=== PATIENT | male | born 1970 | race Caucasian/White ===

== ENCOUNTER 2019-02-26 09:52 | Emergency (ER) | payer BC, OTHER ==
[~2019-02-26] VITALS: Ht 182.8 cm; Wt 113.0 kg
[2019-02-26] MEDS ORDERED: NS IV 1000 ML 1,000 ML IV SCH (10:07)
[2019-02-26] MEDS ORDERED: NS IV 1000 ML 1,000 ML IV ONE (10:07)
--- NOTE | 2019-02-26 10:10 | ED GU-Male ---
General Chief Complaint: - Urinary Stated Complaint: BLURRY VISION; URINARY FREQUENCY Source: patient, spouse Exam Limitations: no limitations History of Present Illness Date Seen by Provider: Feb 26, 2019 Time Seen by Provider: 09:58 Initial Comments Patient presents ER by private conveyance with chief complaint last to 3 weeks of progressively worsening first, urinating frequently 15-16 times a day and feeling dehydrated. He has some nausea but no vomiting. No fevers or chills cough short of breath. Today he started having some blurry vision at work. He does not follow with a primary care doctor and did have some labs done at a screening fair showing that his triglycerides were very high but never followed up on it. No history of diabetes in him or his family. Family history of cancer. Allergies and Home Medications Allergies Coded Allergies: No Known Drug Allergies (Unverified , 02/26/19) Home Medications Insulin Glargine,Hum.rec.anlog 100 Unit/1 Ml Vial, 10 UNIT SQ DAILY Prescribed by: JOVON KENDALL on 02/26/19 1213 Patient Home Medication List Home Medication List Reviewed: Yes Review of Systems Review of Systems Constitutional: No chills, No fever; malaise, weakness EENTM: blurred vision; No ear discharge, No hearing loss, No ear pain, No double vision Respiratory: No cough, No dyspnea on exertion Cardiovascular: No chest pain, No palpitations Gastrointestinal: No abdominal pain, No constipation, No diarrhea; nausea; No vomiting Genitourinary: see HPI; denies burning, denies discharge; frequency Musculoskeletal: No back pain, No joint pain Skin: No pruritus, No rash Psychiatric/Neurological: Denies Headache, Denies Numbness All Other Systemes Reviewed Negative Unless Noted: Yes Past [id number]-Eoniye Hx Patient Social History Alcohol Use: Denies Use Recreational Drug Use: No Smoking Status: Never a Smoker Recent Foreign Travel: No Physical Exam Vital Signs Vital Signs - First Documented 02/26/19 02/26/19 10:00 12:44 Temp 37.0 Pulse 115 Resp 18 B/P (MAP) 147/86 Pulse Ox 96 O2 Delivery Room Air Capillary Refill : Height, Weight, BMI Height: '" Weight: lbs. oz. kg; BMI Method: General Appearance: WD/WN, mild distress HEENT: PERRL/EOMI, pharynx normal Neck: full range of motion, normal inspection Cardiovascular: normal peripheral pulses, regular rate, rhythm, no edema Respiratory: lungs clear, normal breath sounds, no respiratory distress, no accessory muscle use Gastrointestinal: normal bowel sounds, non tender, soft Extremities: normal range of motion, non-tender, normal capillary refill Neurologic/Psychiatric: alert, normal mood/affect, oriented x 3 Skin: normal color, warm/dry Progress/Results/Core Measures Suspected Sepsis SIRS Temperature: Pulse: Respiratory Rate: Laboratory Tests 02/26/19 10:12: White Blood Count 8.7 Blood Pressure / Mean: Laboratory Tests 02/26/19 10:12: Creatinine 0.84, Platelet Count 316, Total Bilirubin 0.6 Results/Orders Lab Results Laboratory Tests Test 02/26/19 09:57 02/26/19 10:07 02/26/19 10:12 02/26/19 11:15 Range/Units Urine Color YELLOW Urine Clarity CLEAR Urine pH 6.0 5-9 Urine Specific [place] 1.010 L 1.016-1.022 Urine Protein NEGATIVE NEGATIVE Urine Glucose (UA) 3+ H NEGATIVE Urine Ketones NEGATIVE NEGATIVE Urine Nitrite NEGATIVE NEGATIVE Urine Bilirubin NEGATIVE NEGATIVE Urine Urobilinogen 0.2 < = 1.0 MG/DL Urine Leukocyte Esterase NEGATIVE NEGATIVE Urine RBC (Auto) NEGATIVE NEGATIVE Urine RBC NONE /HPF Urine WBC NONE /HPF Urine Squamous Epithelial Cells NONE /HPF Urine Crystals NONE /LPF Urine Bacteria NEGATIVE /HPF Urine Casts NONE /LPF Urine Mucus NEGATIVE /LPF Urine Culture Indicated NO Glucometer 445 *H 70-110 MG/DL White Blood Count 8.7 4.3-11.0 10^3/uL Red Blood Count 5.26 4.35-5.85 10^6/uL Hemoglobin 15.9 13.3-17.7 G/DL Hematocrit 44 40-54 % Mean Corpuscular Volume 83 80-99 FL Mean Corpuscular Hemoglobin 30 25-34 PG Mean Corpuscular Hemoglobin Concent 36 32-36 G/DL Red Cell Distribution Width 12.5 10.0-14.5 % Platelet Count 316 130-400 10^3/uL Mean Platelet Volume 9.8 7.4-10.4 FL Neutrophils (%) (Auto) 63 42-75 % Lymphocytes (%) (Auto) 27 12-44 % Monocytes (%) (Auto) 6 0-12 % Eosinophils (%) (Auto) 3 0-10 % Basophils (%) (Auto) 1 0-10 % Neutrophils # (Auto) 5.4 1.8-7.8 X 10^3 Lymphocytes # (Auto) 2.4 1.0-4.0 X 10^3 Monocytes # (Auto) 0.5 0.0-1.0 X 10^3 Eosinophils # (Auto) 0.3 0.0-0.3 10^3/uL Basophils # (Auto) 0.1 0.0-0.1 10^3/uL Sodium Level 131 L 135-145 MMOL/L Potassium Level 4.7 3.6-5.0 MMOL/L Chloride Level 93 L 98-107 MMOL/L Carbon Dioxide Level 23 21-32 MMOL/L Anion Gap 15 H 5-14 MMOL/L Blood Urea Nitrogen 14 7-18 MG/DL Creatinine 0.84 0.60-1.30 MG/DL Estimat Glomerular Filtration Rate > 60 BUN/Creatinine Ratio 17 Glucose Level 457 *H 70-105 MG/DL Calcium Level 9.9 8.5-10.1 MG/DL Corrected Calcium 9.7 8.5-10.1 MG/DL Total Bilirubin 0.6 0.1-1.0 MG/DL Aspartate Amino Transf (AST/SGOT) 49 H 5-34 U/L Alanine Aminotransferase (ALT/SGPT) 68 H 0-55 U/L Alkaline Phosphatase 81 40-136 U/L C-Reactive Protein 0.51 H <0.50 MG/DL Total Protein 7.6 6.4-8.2 GM/DL Albumin 4.2 3.2-4.5 GM/DL Blood Gas Puncture Site LEFT RADIAL Blood Gas Patient Temperature NA Arterial Blood pH 7.40 7.37-7.43 Arterial Blood Partial Pressure CO2 46 H 35-45 MMHG Arterial Blood Partial Pressure O2 56 L 79-93 MMHG Arterial Blood HCO3 29 H 23-27 MMOL/L Arterial Blood Total CO2 29.9 21.0-31.0 MMOL/L Arterial Blood Oxygen Saturation 89 L 94-100 % Arterial Blood Base Excess 3.1 H -2.5-2.5 MMOL/L Juan Antonio Test YES-POS Blood Gas Ventilator Setting NO Blood Gas Inspired Oxygen ROOM AIR Test 02/26/19 11:56 Range/Units Glucometer 331 H 70-110 MG/DL My Orders Orders - ENOCH,JOVON J Cbc With Automated Diff (02/26/19 10:06) Comprehensive Metabolic Panel (02/26/19 10:06) Crp Fs (02/26/19 10:06) Ua Culture If Indicated (02/26/19 10:06) Accucheck Stat ONCE (02/26/19 10:06) Ed Iv/Invasive Line Start (02/26/19 10:07) Ns Iv 1000 Ml (Sodium Chloride 0.9%) (02/26/19 10:07) Ns Iv 1000 Ml (Sodium Chloride 0.9%) (02/26/19 10:07) Insulin (Regular) Human (Humulin R (Per (02/26/19 10:15) Arterial Blood Gas (02/26/19 10:09) Ondansetron Injection (Zofran Injectio (02/26/19 10:15) Accucheck Stat ONCE (02/26/19 11:24) Insulin (Regular) Human (Humulin R (Per (02/26/19 12:00) Insulin Determir (Per Unit) (Levemir (Pe (02/26/19 12:00) Medications Given in ED Current Medications Medications Dose Ordered Sig/Cynthia Route Start Time Stop Time Status Last Admin Dose Admin Insulin Detemir 10 unit ONCE ONCE SQ 02/26/19 12:00 02/26/19 12:01 DC 02/26/19 12:28 10 UNIT Insulin Human Regular 5 unit ONCE ONCE SC 02/26/19 10:15 02/26/19 10:16 DC 02/26/19 10:44 5 UNIT Insulin Human Regular 7 unit ONCE ONCE SC 02/26/19 12:00 02/26/19 12:01 DC 02/26/19 12:27 7 UNIT Ondansetron HCl 4 mg ONCE ONCE IVP 02/26/19 10:15 02/26/19 10:16 DC 02/26/19 10:44 4 MG Sodium Chloride 1,000 ml @ 0 mls/hr Q0M ONCE IV 02/26/19 10:07 02/26/19 10:08 DC 02/26/19 10:43 0 MLS/HR Vital Signs/I&O 02/26/19 02/26/19 10:00 12:44 Temp 37.0 37.0 Pulse 115 98 Resp 18 18 B/P (MAP) 147/86 Pulse Ox 96 96 O2 Delivery Room Air Capillary Refill : Progress Note #1: Time: 11:42 Progress Note Patient is not in DKA. He does have hyperglycemia and dehydration. Urine does not appear to be infected. We have done 20-30 minutes of motivation all teaching about lifestyle changes, diet, insulin use, sugar management and checking blood sugars. We'll have nursing decent hands-on teaching and have him do one sugar himself as well as give himself a dose of insulin after we get the results from the blood sugar. We'll put him on a long-acting Lantus and try to get him to his outpatient appointment with Dr. starr on Monday, 4 days from now. His vitals are fine. He is feeling much better now. His nausea is gone. He still has no pain. He still has about 800 cc of normal saline left. Progress Note #2: Time: 12:00 Progress Note Repeat glucose 331. He dropped out of 100 with 5 units of regular insulin so a plan to give him another 7 units which will have him self administer and then give him 10 units of Levemir and have him follow-up Monday with primary care. His IV fluids are almost done and his symptoms have abated. Progress Note #3: Time: 12:23 Progress Note Lab reports of the blood was too lipemic to obtain AST and ALT so they sent her down to [place] have a random. He can follow up these results with Dr. starr, primary care. Departure Impression Primary Impression: Hyperglycemia due to type 2 diabetes mellitus Qualified Codes: E11.65 - Type 2 diabetes mellitus with hyperglycemia Additional Impressions: Dehydration Hyperlipidemia associated with type 2 diabetes mellitus Disposition: HOME, SELF-CARE Condition: Improved Departure-Patient Inst. Decision time for Depature: 12:00 Referrals: ZAKIYA STARR MD (PCP/Family) Primary Care Physician Patient Instructions: Blood Glucose Monitoring, Diabetes Diet , Type 2 Diabetes, The ABCs of Diabetes, Hyperglycemia, Adult (DC) Add. Discharge Instructions: Continue to drink plenty of fluids. Check your blood sugar first thing in the morning before have anything to eat or drink and record that in a log book to take with you to the doctor's office on Monday. If your blood sugar is less than 70 then do not give the Lantus, long-acting insulin. Otherwise give 10 units of Lantus subcutaneous every day. If your sugar goes over 400 and you are having any symptoms then you need to return to the ER sooner. Avoid carbohydrates such as her 5 sugars, starches like potatoes, pasta and rice. Eat foods high in fiber such as dark green leafy vegetables. Good second choice are foods rich in protein such as legumes, white meat and fats. Check your blood sugar if you begin to have any symptoms such as increased thirst and frequent urination, cool, clammy, sweaty skin, confusion, fatigue etc. If your blood sugar is below 70 then you need to eat something. Preferably something with a little bit of carbohydrates and some protein such as peanut butter and crackers. Start planning out long-term exercise, fitness and weight loss goals. Discuss with your primary care doctor seeing a dietary conditioning coach. All discharge instructions reviewed with patient and/or family. Voiced understanding. Scripts Blood Glucose Strips-Dispmeter (Co.Import Blood Glucose System) 1 Each Kit EACH DAILY PRN for dm2, #100 Use as directed Prov: JOVON KENDALL 02/26/19 Blood-Glucose Meter (Blood Glucose Meter) 1 Each Each EACH DAILY PRN PRN for HYPOGLYCEMIA, #1 0 Refills Fasting and if suspected low blood sugar Prov: JOVON KENDALL 02/26/19 Syring W-Ndl,Disp,Insul,0.3 ml (Insulin Syringe) 1 Each Disp.syrin EACH DAILY for DM2, #100 Prov: JOVON KENDALL 02/26/19 Lancets (Blood Lancets) 1 Each Each EACH DAILY PRN for Discomfort, #100 0 Refills check fasting and as needed. Prov: JOVON KENDALL 02/26/19 Insulin Glargine,Hum.rec.anlog (Lantus) 100 Unit/1 Ml Vial 10 UNIT SQ DAILY for 30 Days, #1 VIAL 0 Refills Prov: JOVON KENDALL 02/26/19 Work/School Note: Work Release Form Date Seen in the Emergency Department: Feb 26, 2019 Return to Work: Feb 28, 2019 Restrictions: No Restrictions Copy Copies To 1: ZAKIYA STARR MD, TITUS J Feb 26, 2019 10:10
[2019-02-26] MEDS ORDERED: ONDANSETRON 4 MG/2 ML (SDV) Z0FRAN IVP ONE (10:15)
[2019-02-26] MEDS ORDERED: inSUlin (REGULAR) HUMAN 1 UNIT/0.01 ML (CHARGE PER UNIT) SC ONE ×2 (10:15→12:00)
[2019-02-26 10:22] LABS: HEMATOCRIT 44 % (40-54); HEMOGLOBIN 15.9 G/DL (13.3-17.7); MEAN CORPUSCULAR HEMOGLOBIN 30 PG (25-34); MEAN CORPUSCULAR HGB CONC 36 G/DL (32-36); MEAN CORPUSCULAR VOLUME 83 FL (80-99); RED CELL DISTRIBUTION WIDTH 12.5 % (10.0-14.5); WHITE BLOOD COUNT 8.7 10^3/uL (4.3-11.0)
[2019-02-26 10:23] LABS: BASOPHILS # (AUTO) 0.1 10^3/uL (0.0-0.1); BASOPHILS % (AUTO) 1 % (0-10); EOSINOPHILS # (AUTO) 0.3 10^3/uL (0.0-0.3); EOSINOPHILS % (AUTO) 3 % (0-10); LYMPHOCYTES # (AUTO) 2.4 X 10^3 (1.0-4.0); LYMPHOCYTES % (AUTO) 27 % (12-44); MEAN PLATELET VOLUME 9.8 FL (7.4-10.4); MONOCYTES # (AUTO) 0.5 X 10^3 (0.0-1.0); MONOCYTES % (AUTO) 6 % (0-12); NEUTROPHILS # (AUTO) 5.4 X 10^3 (1.8-7.8); NEUTROPHILS % (AUTO) 63 % (42-75); PLATELET COUNT 316 10^3/uL (130-400)
[2019-02-26 10:49] LABS: BACTERIA,URINE NEGATIVE /HPF; BILIRUBIN,URINE NEGATIVE (NEGATIVE); CLARITY,URINE CLEAR; COLOR,URINE YELLOW; GLUCOSE, URINE (UA) 3+ (NEGATIVE); KETONES,URINE NEGATIVE (NEGATIVE); LEUKOCYTE ESTERASE ,URINE NEGATIVE (NEGATIVE); NITRITE,URINE NEGATIVE (NEGATIVE); PROTEIN,URINE NEGATIVE (NEGATIVE)
[2019-02-26 10:51] LABS: ALBUMIN 4.2 GM/DL (3.2-4.5); ALKALINE PHOSPHATASE 81 U/L (40-136); BILIRUBIN,TOTAL 0.6 MG/DL (0.1-1.0); BUN/CREATININE RATIO 17; CALCIUM 9.9 MG/DL (8.5-10.1); CARBON DIOXIDE 23 MMOL/L (21-32); CHLORIDE 93 MMOL/L (98-107); CREATININE SERUM 0.84 MG/DL (0.60-1.30); GFR ESTIMATED > 60; POTASSIUM 4.7 MMOL/L (3.6-5.0); SODIUM 131 MMOL/L (135-145); TOTAL PROTEIN 7.6 GM/DL (6.4-8.2)
[2019-02-26 10:56] LABS: GLUCOSE 457 MG/DL (70-105)
[2019-02-26 11:22] LABS: ABG BASE EXCESS 3.1 MMOL/L (-2.5-2.5); ABG PCO2 46 MMHG (35-45); ABG PO2 56 MMHG (79-93); ABG TCO2 29.9 MMOL/L (21.0-31.0)
[2019-02-26 11:23] LABS: ABG OXYGEN SATURATION 89 % (94-100); ALLENS TEST YES-POS; INSPIRED O2 ROOM AIR; VENTILATOR NO
[2019-02-26] MEDS ORDERED: LANC-954 MC (12:13)
[2019-02-26] MEDS ORDERED: [UNRECOGNIZED DRUG - CODE] MC (12:13)
[2019-02-26] MEDS ORDERED: INSU100V6 SQ (12:13)
[2019-02-26] MEDS ORDERED: BLOO1EAC87 MC (12:13)
[2019-02-26 12:44] VITALS: BP 147/86
[2019-02-26] MEDS ORDERED: BLOO-367 MC (13:42)
[2019-02-26 14:57] LABS: ALANINE AMINOTRANSFERASE 68 U/L (0-55)
== END 2019-02-26 12:44 | disposition home or self-care (01) ==
LOC: EDUNIT# 09:52 → ER FS 09:53
DX: E11.65 Type 2 diabetes mellitus with hyperglycemia (principal); E86.0 Dehydration; E11.69 Type 2 diabetes mellitus with other specified complication; E78.49 Other hyperlipidemia
CPT/HCPCS: 36415; 80053; 81000; 82805; 82962; 85025; 86141; 96361; 96372; 96374

== ENCOUNTER 2020-12-04 23:54 | Emergency (ER) | payer BC ==
[~2020-12-04] VITALS: Ht 182.9 cm; Wt 122.5 kg
[~2020-12-04 23:54] MED LIST: BLOO-367 MC; BLOO1EAC87 MC; INSU100V6 SQ; LANC-954 MC; [UNRECOGNIZED DRUG - CODE] MC
--- OUTSIDE RECORDS SUMMARY | 2020-12-05 00:01 | XMS REPORT | Clinical Summary ---
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
[2020-12-05 00:13] LABS: HEMATOCRIT 43 % (40-54); HEMOGLOBIN 14.9 g/dL (13.3-17.7); LYMPHOCYTES % (AUTO) 39 % (12-44); MEAN CORPUSCULAR HEMOGLOBIN 30 pg (25-34); MEAN CORPUSCULAR HGB CONC 35 g/dL (32-36); MEAN CORPUSCULAR VOLUME 85 fL (80-99); MEAN PLATELET VOLUME 9.6 fL (9.0-12.2); MONOCYTES % (AUTO) 6 % (0-12); NEUTROPHILS % (AUTO) 50 % (42-75); PLATELET COUNT 360 10^3/uL (130-400); WHITE BLOOD COUNT 10.9 10^3/uL (4.3-11.0)
[2020-12-05 00:14] LABS: BASOPHILS # (AUTO) 0.1 10^3/uL (0.0-0.1); BASOPHILS % (AUTO) 1 % (0-10); EOSINOPHILS # (AUTO) 0.3 10^3/uL (0.0-0.3); EOSINOPHILS % (AUTO) 3 % (0-10); LYMPHOCYTES # (AUTO) 4.3 X 10^3 (1.0-4.0); MONOCYTES # (AUTO) 0.7 X 10^3 (0.0-1.0); NEUTROPHILS # (AUTO) 5.4 X 10^3 (1.8-7.8)
--- NOTE | 2020-12-05 00:15 | ED Neurological Problem ---
General Chief Complaint: Neuro-Stroke Like Symptoms Stated Complaint: LEFT NUMB/BLURRED VISION Source: patient, spouse History of Present Illness Date Seen by Provider: Dec 04, 2020 Time Seen by Provider: 23:55 Initial Comments 50-year-old male presenting with complaints of sudden onset of left-sided weakness and blurry vision. He states he had been playing [employer] and went to stand up as he was standing and walking he was having trouble due to weakness of the left side. He drank some orange juice which helped with his blurred vision. He continued to have difficulty using his left leg. They had checked his glucose at home and stated that it was okay. Since he has continued to have symptoms they drove to the emergency department. He denies having pain anywhere. He feels a little short of breath as well as having some nausea but no actual vomiting. He denies having symptoms like this before or prior injury. No recent fall or head injury. No recent surgery. Timing/Duration: 1/2 hour Associated Symptoms: confusion (feels like he is having hard time concentrating ), fatigue; No fever/chills, No insomnia, No loss of consciousness, No muscle spasms; nausea/vomiting (nausea but no vomiting); No numbness in legs/feet, No paresthesia, No ringing in ears, No seizures, No sleepy, No slurred speech, No tingling in legs/feet; trouble walking (due to left leg weakness), vision changes (blurred initially but improved after drinking orange juice), weakness (left leg) Allergies and Home Medications Allergies Coded Allergies: No Known Drug Allergies (Unverified , 02/26/19) Patient Home Medication List Home Medication List Reviewed: Yes Blood Glucose Strips-Dispmeter (Innovid Blood Glucose System) 1 Each Kit, EACH MC DAILY PRN, (DME) Prescribed by: JOVON KENDALL on 02/26/19 1342 Blood-Glucose Meter (Blood Glucose Meter) 1 Each Each, EACH MC DAILY PRN PRN for HYPOGLYCEMIA, (DME) Prescribed by: JOVON KENDALL on 02/26/19 1213 Insulin Glargine,Hum.rec.anlog (Lantus) 100 Unit/1 Ml Vial, 10 UNIT SQ DAILY Prescribed by: JOVON KENDALL on 02/26/19 1213 Lancets (Blood Lancets) 1 Each Each, EACH MC DAILY PRN, (DME) Prescribed by: JOVON KENDALL on 02/26/19 1213 Syring W-Ndl,Disp,Insul,0.3 ml (Insulin Syringe) 1 Each Disp.syrin, EACH MC DAILY, (DME) Prescribed by: JOVON KENDALL on 02/26/19 1213 Review of Systems Review of Systems Constitutional: No chills, No fever Eyes: See HPI; Denies Photophobia Ears, Nose, Mouth, Throat: denies ear pain, denies nose pain, denies nose discharge, denies epistaxis Respiratory: No cough; short of breath Cardiovascular: No chest pain, No palpitations Gastrointestinal: No abdominal pain; nausea; No vomiting Genitourinary: No dysuria Musculoskeletal: no symptoms reported Skin: No rash Psychiatric/Neurological: Denies Headache, Denies Numbness, Denies Tingling; Weakness (left leg) Past Suxprne-Ymvcxk-Wxltva Hx Seasonal Allergies Seasonal Allergies: No Past Medical History Surgeries: Yes Orthopedic, Vasectomy Respiratory: No Cardiac: Yes High Cholesterol Neurological: No Genitourinary: No Gastrointestinal: No Musculoskeletal: No Endocrine: No (Seen in ER 02/26/19 New onset Diabetes) Diabetes, Insulin dep HEENT: No Cancer: No Psychosocial: Yes Anxiety Integumentary: No Blood Disorders: No Physical Exam Vital Signs Vital Signs - First Documented 12/04/20 23:54 Temp 36.1 Pulse 95 Resp 17 B/P (MAP) 164/116 (132) Pulse Ox 97 O2 Delivery Room Air Capillary Refill : Height, Weight, BMI Height: '" Weight: lbs. oz. kg; 33.00 BMI Method: General Appearance: WD/WN, other (anxious) HEENT: PERRL/EOMI, normal ENT inspection, pharynx normal Neck: non-tender, full range of motion, supple, normal inspection Respiratory: chest non-tender, lungs clear, normal breath sounds, no respiratory distress, no accessory muscle use Cardiovascular: normal peripheral pulses, regular rate, rhythm Gastrointestinal: normal bowel sounds, non tender, soft, no pulsatile mass Extremities: non-tender, no calf tenderness, normal capillary refill Neurologic/Psychiatric: head butler II-XII nml as tested, alert, oriented x 3, other (anxious. left leg drift on exam with him trying to hold it in air for 5 seconds) Crainal Nerves: normal hearing, normal speech, PERRL Coordination/Gait: abnormal gait (left leg weakness) Motor/Sensory: no sensory deficit Skin: normal color, warm/dry Stroke Onset of Symptoms Date of Onset of Symptoms: Dec 04, 2020 Time of Symptom Onset: 23:30 Onset of Symptoms: Yes NIH Stroke Scale Assessment Select: Initial Level of Consciousness: 0=Alert (0), Level of Consciousness- Questions: 0=Answers both month/age (0), LOC Commands: 0=Performs both tasks (0), Gaze: Normal (0), Visual Mcpherson: 0=No visual loss (0), Facial Movement (Facial Paresis): 0=Normal symmetrical mnt (0), Motor Function-Arms Right: 0=No drift (0), Motor Function-Arms Left: 0=No drift (0), Motor Function-Legs Right: 0=No drift (0), Motor Function-Legs Left: 1=Drift (1), Limb Ataxia: 0=Absent (0), Sensory: 0=Normal:no loss (0), Best Language: 0=No aphasia (0), Dysarthria: 0=Normal (0), Extinction & Inattention: 0=No abnormality (0), Total: 1 Stroke Thrombolytic Exclusion Age 18 or Over: Yes Acute intenal hemorrhage: No History of CVA: No Uncontrolled Coagulation Defec: No Intracranial Hemorrhage: No Severe Hypertension: No GI or Bleed: No Subarachnoid Hemorrhage: No Intracranial Neoplasm/Aneurysm: No Oral Anticoagulants: No Surgery or Trauma: No Puncture of Non-Compressible V: No Recent CPR: No Diabetic Hemorrhagic Retinopat: No Organ Biopsy: No Recent Obstetric Delivery: No Glucose: No Significant Hepatic Dysfunctio: No NIH Stoke Scale >22: No Bacterial Endocarditis: No Pericarditis: No Improving Symptoms: Yes Platelets: No TPA Contraindication: No Progress/Results/Core Measures Results/Orders Lab Results Laboratory Tests Test 12/05/20 00:05 12/05/20 00:10 12/05/20 01:05 Range/Units White Blood Count 10.9 4.3-11.0 10^3/uL Red Blood Count 5.03 4.30-5.52 10^6/uL Hemoglobin 14.9 13.3-17.7 g/dL Hematocrit 43 40-54 % Mean Corpuscular Volume 85 80-99 fL Mean Corpuscular Hemoglobin 30 25-34 pg Mean Corpuscular Hemoglobin Concent 35 32-36 g/dL Red Cell Distribution Width 12.8 10.0-14.5 % Platelet Count 360 130-400 10^3/uL Mean Platelet Volume 9.6 9.0-12.2 fL Immature Granulocyte % (Auto) 1 % Neutrophils (%) (Auto) 50 42-75 % Lymphocytes (%) (Auto) 39 12-44 % Monocytes (%) (Auto) 6 0-12 % Eosinophils (%) (Auto) 3 0-10 % Basophils (%) (Auto) 1 0-10 % Neutrophils # (Auto) 5.4 1.8-7.8 X 10^3 Lymphocytes # (Auto) 4.3 H 1.0-4.0 X 10^3 Monocytes # (Auto) 0.7 0.0-1.0 X 10^3 Eosinophils # (Auto) 0.3 0.0-0.3 10^3/uL Basophils # (Auto) 0.1 0.0-0.1 10^3/uL Immature Granulocyte # (Auto) 0.1 0.0-0.1 10^3/uL Prothrombin Time 11.7 L 12.2-14.7 SEC INR Comment 0.8 0.8-1.4 Activated Partial Thromboplast Time 24 24-35 SEC Sodium Level 139 135-145 MMOL/L Potassium Level 3.9 3.6-5.0 MMOL/L Chloride Level 102 98-107 MMOL/L Carbon Dioxide Level 25 21-32 MMOL/L Anion Gap 12 5-14 MMOL/L Blood Urea Nitrogen 18 7-18 MG/DL Creatinine 0.98 0.60-1.30 MG/DL Estimat Glomerular Filtration Rate 81 BUN/Creatinine Ratio 18 Glucose Level 189 H 70-105 MG/DL Calcium Level 9.7 8.5-10.1 MG/DL Corrected Calcium 9.3 8.5-10.1 MG/DL Total Bilirubin 0.8 0.1-1.0 MG/DL Aspartate Amino Transf (AST/SGOT) < 5 L 5-34 U/L Alanine Aminotransferase (ALT/SGPT) < 5 0-55 U/L Alkaline Phosphatase 60 40-136 U/L Troponin I < 0.30 <0.30 NG/ML Total Protein 7.7 6.4-8.2 GM/DL Albumin 4.5 3.2-4.5 GM/DL Serum Alcohol < 10 <10 MG/DL Glucometer 198 H 70-110 MG/DL Urine Color YELLOW Urine Clarity CLEAR Urine pH 6.0 5-9 Urine Specific [place] >=1.030 1.016-1.022 Urine Protein NEGATIVE NEGATIVE Urine Glucose (UA) NEGATIVE NEGATIVE Urine Ketones NEGATIVE NEGATIVE Urine Nitrite NEGATIVE NEGATIVE Urine Bilirubin NEGATIVE NEGATIVE Urine Urobilinogen 0.2 < = 1.0 MG/DL Urine Leukocyte Esterase NEGATIVE NEGATIVE Urine RBC (Auto) NEGATIVE NEGATIVE Urine RBC 0-2 /HPF Urine WBC RARE /HPF Urine Squamous Epithelial Cells RARE /HPF Urine Crystals NONE /LPF Urine Bacteria TRACE /HPF Urine Casts NONE /LPF Urine Mucus MODERATE H /LPF Urine Culture Indicated NO Urine Opiates Screen POSITIVE H NEGATIVE Urine Oxycodone Screen NEGATIVE NEGATIVE Urine Methadone Screen NEGATIVE NEGATIVE Urine Propoxyphene Screen NEGATIVE NEGATIVE Urine Barbiturates Screen NEGATIVE NEGATIVE Ur Tricyclic Antidepressants Screen NEGATIVE NEGATIVE Urine Phencyclidine Screen NEGATIVE NEGATIVE Urine Amphetamines Screen NEGATIVE NEGATIVE Urine Methamphetamines Screen NEGATIVE NEGATIVE Urine Benzodiazepines Screen POSITIVE H NEGATIVE Urine Cocaine Screen NEGATIVE NEGATIVE Urine Cannabinoids Screen POSITIVE H NEGATIVE My Orders Orders - STACY LUIS MD Cbc With Automated Diff (12/05/20 00:07) Protime With Inr (12/05/20 00:07) Partial Thromboplastin Time (12/05/20 00:07) Comprehensive Metabolic Panel (12/05/20 00:07) Troponin I Fs (12/05/20 00:07) Ua Culture If Indicated (12/05/20 00:07) Chest 1 View Ap/Pa Only (12/05/20 00:07) Ekg Tracing (12/05/20 00:07) Nothing By Mouth (12/05/20 Breakfast) Accucheck Stat ONCE (12/05/20 00:07) Ed Iv/Invasive Line Start (12/05/20 00:07) Vital Signs Stroke Patient Q15M (12/05/20 00:07) Ct Head Wo-R/O Stroke (12/05/20 00:07) O2 (12/05/20 00:07) Intake & Output 06,14,22 (12/05/20 00:07) Monitor-Rhythm Ecg Trace Only (12/05/20 00:07) Dysphagia Screening Tool (12/05/20 00:07) Alcohol (12/05/20 00:09) Drug Screen Stat (Urine) (12/05/20 00:09) Ondansetron Injection (Zofran Injectio (12/05/20 00:16) Fentanyl Inj (Sublimaze Injection) (12/05/20 00:36) Ct Angio Head/Neck (12/05/20 00:41) Iohexol Injection (Omnipaque 350 Mg/Ml 1 (12/05/20 00:45) Received Contrast (Hold Metformin- Contr (12/05/20 00:45) Ns (Ivpb) (Sodium Chloride 0.9% Ivpb Bag (12/05/20 00:45) Medications Given in ED Current Medications Medications Dose Ordered Sig/Cynthia Route Start Time Stop Time Status Last Admin Dose Admin Iohexol 75 ml ONCE ONCE IV 12/05/20 00:45 12/05/20 00:47 DC 12/05/20 01:07 75 ML Sodium Chloride 100 ml ONCE ONCE IV 12/05/20 00:45 12/05/20 00:47 DC 12/05/20 01:07 100 ML Vital Signs/I&O 12/04/20 12/04/20 23:54 23:54 Temp 36.1 Pulse 95 Resp 17 B/P (MAP) 164/116 (132) Pulse Ox 97 97 O2 Delivery Room Air Room Air Progress Progress Note #1: Progress Note Check labs, ECG, CXR, CT head, UA, cardiac enzymes. NIH scale 1 due to drift in left leg. Zofran for nausea. Progress Note #2: Time: 00:23 Progress Note After return from CT scan pt complains now of headache. Progress Note #3: Time: 00:43 Progress Note [facility] radiologist, Dr. Nick Nelson MD, called to state the CT head without contrast was negative for acute process. Updated pt about labs looking ok and no acute process on CT head without contrast. Will order CT angiogram head/neck with contrast. Pt now is moving left leg without difficulty but states he has pain and feels like he needs to stretch his leg. Also have throbbing headache, and despite denying headache or pain when asked initially, he now states he has had the throbbing headache worsening since onset of symptoms. will consult with [facility] neurologist transportation manager for stroke and get recommendations from them with his symptoms improving in his left leg but now having headache and "not feeling right". Will try Fentanyl 50 mcg IV for pain as I do not want to give NSAID until further testing back with recommendations from Neuro. Progress Note #4: Time: 00:52 Progress Note d/w Dr. Ronquillo, transportation manager stroke neurologist at [facility]. Reviewed presentation and symptoms of patient as well as negative studies so far. He is currently in CT for CT angiogram head and neck. His symptoms have rapidly improved in his leg and now he has more pain and cramping like the muscles are tight in his leg and need to be stretched. He denies history of migraine headaches but as pointed out by Dr. Ronquillo this could be a complex migraine. If CT angiogram does not show anything acute or specific then an MRI could be considered, especially if pt not back to baseline. Could try Toradol/Benadryl/Anti emetic combo for Migraine headache cocktail to see if that helps his headache if not improved with fentanyl and rest. Progress Note #5: Time: 01:39 Progress Note Pt reports his headache is almost all gone now. He has no residual weakness in left leg. He still has some muscle tightness present but it is improved as well. d/w Dr. Isaac Mccracken from [facility] about CT Angiogram results being negative. Call back to and spoke with Dr. Ronquillo and he advised that it sounded like the patient could get set up as an outpatient for MRI with strict return p recautions if having recurrent or new symptoms over the weekend. Follow up with pcp next week as well as getting the MRI. Initial ECG Impression Date: Dec 04, 2020 Initial ECG Impression Time: 23:58 Initial ECG Rate: 94 Initial ECG Rhythm: Normal Sinus Initial ECG Comparisson: No Previous ECG Available Comment Normal sinus rhythm with a heart rate of [address] elevation. MT interval 187 ms. QT interval 343 ms with a QTc interval 429 ms. No prior tracing available for comparison. Diagnostic Imaging Diagonstic Imaging: CT Plain Films/CT/US/NM/MRI: head Comments Impression: 1. No acute abnormality. Read by Dr. Nick Nelson MD, at 0030 and faxed at [phone] Reviewed: Reviewed Night Gilberto Study, Reviewed by Me Diagonstic Imaging: Xray Plain Films/CT/US/NM/MRI: chest Comments On my review of his one view chest x-ray he does not have any acute infiltrate or effusion. Reviewed: Reviewed by Me Diagonstic Imaging: CT (angiogram) Plain Films/CT/US/NM/MRI: head (and neck) Comments Impression: 1. Precontrast imaging demonstrates no acute intracranial process. 2. Negative intracranial CTA examination. 3. Negative Cervical CTA examination. Read by Dr. Isaac Mccracken MD., at 0121 and faxed at [phone] [facility]: [facility] Imp[facility] Primary Impression: Left leg weakness Additional Impression: Headache Qualified Codes: R51.9 - Headache, unspecified Disposition: HOME, SELF-CARE Condition: Improved Departure-Patient Inst. Decision time for Depature: 01:52 Referrals: ZAKIYA CHRISTIAN MD (PCP/Family) Primary Care Physician Patient Instructions: Weakness ED, Headache, Adult ED Add. Discharge Instructions: See Dr. Christian or [facility] provider this upcoming week on Monday or Monday so you can have an MRI of brain scheduled If over the weekend you have recurrent weakness, or new symptoms then seek medical care immediately All discharge instructions reviewed with patient and/or family. Voiced understanding. STACY LUIS MD Dec 05, 2020 00:15
[2020-12-05] MEDS ORDERED: ONDANSETRON 4 MG/2 ML (SDV) Z0FRAN IVP STA (00:16)
[2020-12-05 00:27] LABS: INR 0.8 (0.8-1.4); PROTHROMBIN TIME PATIENT 11.7 SEC (12.2-14.7)
[2020-12-05 00:32] LABS: ALBUMIN 4.5 GM/DL (3.2-4.5); ALKALINE PHOSPHATASE 60 U/L (40-136); BILIRUBIN,TOTAL 0.8 MG/DL (0.1-1.0); BUN/CREATININE RATIO 18; CALCIUM 9.7 MG/DL (8.5-10.1); CARBON DIOXIDE 25 MMOL/L (21-32); CHLORIDE 102 MMOL/L (98-107); CREATININE SERUM 0.98 MG/DL (0.60-1.30); GFR ESTIMATED 81; GLUCOSE 189 MG/DL (70-105); POTASSIUM 3.9 MMOL/L (3.6-5.0); SODIUM 139 MMOL/L (135-145); TOTAL PROTEIN 7.7 GM/DL (6.4-8.2)
[2020-12-05] MEDS ORDERED: fentaNYL INJ 100 MCG/2 ML AMP IVP STA (00:36)
[2020-12-05 00:45] LABS: ALANINE AMINOTRANSFERASE < 5 U/L (0-55)
[2020-12-05] MEDS ORDERED: IOHEXOL 350 MG/ML 100 ML (OMNIPAQUE 350) VIAL IV ONE (00:45)
[2020-12-05] MEDS ORDERED: NS 100 ML (IVPB) BAG IV ONE (00:45)
[2020-12-05] MEDS ORDERED: HOLD METFORMIN - RECEIVED CONTRAST 20 ML VIAL IV SCH (00:45)
[2020-12-05 01:16] LABS: BILIRUBIN,URINE NEGATIVE (NEGATIVE); CLARITY,URINE CLEAR; COLOR,URINE YELLOW; GLUCOSE, URINE (UA) NEGATIVE (NEGATIVE); KETONES,URINE NEGATIVE (NEGATIVE); LEUKOCYTE ESTERASE ,URINE NEGATIVE (NEGATIVE); NITRITE,URINE NEGATIVE (NEGATIVE); PROTEIN,URINE NEGATIVE (NEGATIVE); RBC,URINE 0-2 /HPF; WBC,URINE RARE /HPF
[2020-12-05 01:17] LABS: BACTERIA,URINE TRACE /HPF; SQUAMOUS EPITHELIAL CELL,UR RARE /HPF
[2020-12-05 01:21] LABS: OPIATE SCREEN URINE POSITIVE (NEGATIVE)
[2020-12-05 01:22] LABS: AMPHETAMINE SCREEN, URINE NEGATIVE (NEGATIVE); BARBITURATE SCREEN URINE NEGATIVE (NEGATIVE); BENZODIAZEPINES SCREEN URINE POSITIVE (NEGATIVE); CANNABINOID SCREEN, URINE POSITIVE (NEGATIVE); COCAINE SCREEN URINE NEGATIVE (NEGATIVE); METHADONE STAT NEGATIVE (NEGATIVE); METHAMPHETAMINE SCREEN URINE S NEGATIVE (NEGATIVE); OXYCODONE STAT NEGATIVE (NEGATIVE); PROPOXYPHENE STAT NEGATIVE (NEGATIVE); TRICYCLIC ANTIDEPRESSANTS SCRE NEGATIVE (NEGATIVE)
[2020-12-05 02:13] VITALS: BP 116/68
--- NOTE | 2020-12-05 05:12 | Diagnostic Imaging Report ---
HISTORY: Leg weakness, shortness of breath TECHNIQUE: Frontal view of the chest COMPARISON: None FINDINGS: Lung volumes are normal. No consolidation is seen. There is no pleural effusion or pneumothorax. The cardiac silhouette is normal in size. IMPRESSION: 1. No acute pulmonary abnormality. Dictated by: Dictated on workstation # [id number]
--- NOTE | 2020-12-05 06:21 | Diagnostic Imaging Report ---
PROCEDURE: CT angiography of the head and CT angiography of the neck with and without contrast. TECHNIQUE: Contiguous noncontrast images were obtained from the skull base through the vertex. After intravenous contrast administration, helical CT angiography of the neck was performed. Source data was reformatted into 3D MIP projections. Delayed post contrast acquisition was also obtained. Auto Exposure Controls were utilized during the CT exam to meet ALARA standards for radiation dose reduction. INDICATION: Left leg weakness, headache, blurred vision, dizziness COMPARISON: None FINDINGS: The ventricles and cortical sulci are age-appropriate. There is no midline shift or mass effect. No acute intracranial hemorrhage is seen. There is no CT evidence of acute territorial ischemia. The calvarium appears intact. Visualized paranasal sinuses are clear. The bilateral common and internal carotid arteries are widely patent. The vertebral arteries appear codominant. They also appear widely patent with no stenosis, dissection or occlusion. The anterior communicating artery is faintly seen. The anterior cerebral arteries appear normal. The middle cerebral arteries demonstrate no acute abnormality. The posterior communicating arteries are not well seen. The posterior cerebral arteries appear normal. The superior cerebellar arteries are unremarkable. The basilar artery appears normal. No thrombus is seen in the dural sinuses. No enhancing lesions are identified. There are mild degenerative changes in the cervical spine with no acute osseous abnormality identified. IMPRESSION: 1. No acute abnormalities seen in the arteries of the head and neck. 2. No acute intracranial hemorrhage or CT evidence of acute territorial ischemia. Dictated by: Dictated on workstation # [id number]
--- NOTE | 2020-12-05 07:47 | Diagnostic Imaging Report ---
PROCEDURE: CT head wo r/o stroke. TECHNIQUE: Multiple contiguous axial images were obtained through the brain without the use of intravenous contrast. Auto Exposure Controls were utilized during the CT exam to meet ALARA standards for radiation dose reduction. INDICATION: Left leg weakness, stroke, dizziness COMPARISON: None available. FINDINGS: No intracranial hemorrhage. No intracranial mass, mass effect, midline shift, herniation, hydrocephalus, or extra-axial fluid collection. No CT evidence of an acute ischemic infarction. The orbits are unremarkable. The paranasal sinuses are clear. The calvarium and extra calvarial soft tissues are unremarkable. Background vascular calcifications are present. IMPRESSION: No acute intracranial abnormality. Should there remain clinical concern for recent infarction, further evaluation with MRI of brain could be obtained. Agree with preliminary interpretation. Dictated by: Dictated on workstation # [id number]
== END 2020-12-05 02:13 | disposition home or self-care (01) ==
LOC: EDUNIT# 23:54 → ER FS 23:58
DX: R53.1 Weakness (principal); R51.9 Headache, unspecified; E11.9 Type 2 diabetes mellitus without complications; Z79.4 Long term (current) use of insulin
CPT/HCPCS: 36415; 70450; 70496; 70498; 71045; 80053; 80306; 81000; 82947; 84484; 85025; 85610; 85730; 93005; 93041; 99284; G0480; 80320